=== PATIENT | male | born 1990 | race African-American/Black ===

== ENCOUNTER 2021-02-20 22:57 | Emergency (ER) | payer OTHER ==
[~2021-02-20] VITALS: Ht 182.9 cm; Wt 79.4 kg
--- NOTE | 2021-02-20 23:05 | NUR ---
BIBSELF C/O "DARK-COLORED URINE" X1 DARK. +GENERALIZED BODY ACHE, -DYSURIA, pt [id number], -sob, nad, vss ,pendign er provider robi
[2021-02-20 23:28] LABS: BASOPHILS # (AUTO) 0.1 /CMM (0.0-0.2); BASOPHILS % (AUTO) 0.9 % (0.0-2.0); EOSINOPHILS % (AUTO) 1.8 % (0.0-6.0); HEMATOCRIT 43 % (39-51); HEMOGLOBIN 14.8 g/dL (13.5-17.5); MEAN CORPUSCULAR HGB CONC 34 g/dl (31.0-36.0); MEAN CORPUSCULAR VOLUME 94 fL (80-96); MONOCYTES # (AUTO) 0.7 /CMM (0.1-1.30); MONOCYTES % (AUTO) 7.5 % (2.0-12.0); NEUTROPHILS # (AUTO) 6.1 /CMM (1.8-8.9); NEUTROPHILS % (AUTO) 67.8 % (43.0-81.0); PLATELET COUNT (AUTO) 253 /CMM (150-450); RED BLOOD CELL COUNT(AUTO) 4.57 MIL/uL (4.5-6.0)
[2021-02-20 23:30] LABS: BILIRUBIN,URINE Negative (NEGATIVE); COLOR,URINE YELLOW (YELLOW); LEUKOCYTE ESTERASE ,URINE Negative (NEGATIVE); NITRITE, URINE Negative (NEGATIVE); PH,URINE 6.5 (5.0-8.0); PROTEIN,URINE 100 mg/dl (NEGATIVE); UGLUCOSE Negative (NEGATIVE); UROBILINOGEN,URINE 0.2 EU/dL (0.2)
[2021-02-20 23:45] LABS: CALCIUM, SERUM 9.2 mg/dL (8.5-10.1); CARBON DIOXIDE 30 mmol/L (21-32); CHLORIDE 104 mmol/L (98-107); CREATININE 1.2 mg/dL (0.6-1.3); GLUCOSE 98 mg/dL (74-106); POTASSIUM 4.5 mmol/L (3.5-5.1); SODIUM SERUM 139 mmol/L (136-145); UREA NITROGEN, BLOOD 17 mg/dL (7-18)
[2021-02-20 23:49] LABS: ALANINE AMINOTRANSFERASE 344 U/L (12-78); ALBUMIN 3.6 g/dL (3.4-5.0); ALKALINE PHOSPHATASE 72 U/L (46-116); ASPARTATE AMINOTRANSFERASE 1210 U/L (15-37); BILIRUBIN,TOTAL 0.4 mg/dL (0.2-1.0); TOTAL PROTEIN, SERUM 7.3 g/dL (6.4-8.2)
[2021-02-20 23:50] LABS: BACTERIA,URINE Rare /HPF (None Seen); RBC,URINE 21-50 /HPF (0-2); SQUAMOUS EPITHELIAL CELL,UR Few /HPF (None Seen); WBC,URINE NONE SEEN /HPF (0-3)
[2021-02-21 00:54] LABS: CREATINE KINASE, TOTAL < 7 U/L (39-308)
--- NOTE | 2021-02-21 01:08 | NUR ---
Patient discharged to home in stable condition. Written and verbal after care instructions given. Patient verbalizes understanding of instruction.Pt ambulatory with a steady gait
[2021-02-21 01:09] VITALS: BP 122/84
== END 2021-02-21 01:09 | disposition home or self-care (01) ==
LOC: ER 23:04
DX: R31.29 Other microscopic hematuria (principal); R74.01 Elevation of levels of liver transaminase levels
CPT/HCPCS: 36415; 80053-TC; 81001; 82550-TC; 85025-TC